=== PATIENT | male | born 1985 | race Caucasian/White ===

== ENCOUNTER 2017-08-27 21:23 | Emergency (ER) | payer OTHER ==
[~2017-08-27] VITALS: Ht 190.5 cm; Wt 99.8 kg
[2017-08-27 21:28] VITALS: Ht 190.5 cm; Wt 99.8 kg
[2017-08-27 22:30] VITALS: BP 128/88
== END 2017-08-27 22:30 | disposition home or self-care (01) ==
LOC: ED 21:23
DX: R07.9 Chest pain, unspecified (principal)
CPT/HCPCS: Q0092

== ENCOUNTER 2018-10-14 11:41 | Emergency (ER) | payer OTHER ==
[~2018-10-14] VITALS: Ht 182.9 cm; Wt 113.4 kg
[2018-10-14 11:42] VITALS: Ht 182.9 cm; Wt 113.4 kg
[2018-10-14 12:58] LABS: AMPHETAMINE QUAL UR POSITIVE (See below)
[2018-10-14 13:02] LABS: BASOPHIL % 0.4 % (0-2); PLATELET COUNT 244 x10^3mcL (130-400)
[2018-10-14 13:03] LABS: RED CELL DISTRIBUTION WIDTH 14.8 % (11.5-14.5)
[2018-10-14 13:13] VITALS: BP 128/71
[2018-10-14 13:16] LABS: CALCIUM 9.7 mg/dL (8.5-10.1); CARBON DIOXIDE 27.9 mmol/L (21-32); CHLORIDE SERUM 106 mmol/L (98-107); CREATININE SERUM 1.4 mg/dL (0.7-1.3); GFR1 > 60 mL/min; GLUCOSE SERUM 87 mg/dL (74-106); POTASSIUM SERUM 3.7 mmol/L (3.5-5.1); SODIUM SERUM 144 mmol/L (136-145)
[2018-10-14 13:21] LABS: ALBUMIN 3.9 g/dL (3.4-5.0); ALKALINE PHOSPHATASE 70 U/L (46-116); ALT/SGPT 58 U/L (16-63); AST/SGOT 39 U/L (15-37); BILIRUBIN TOTAL 0.9 mg/dL (0.20-1.00); TOTAL PROTEIN, SERUM 7.8 g/dL (6.4-8.2)
== END 2018-10-14 13:13 | disposition home or self-care (01) ==
LOC: ED 11:41
PROVIDERS: Emergency Medicine
DX: R53.1 Weakness (principal); T67.5XXA Heat exhaustion, unspecified, initial encounter; Z59.0 Homelessness; X58.XXXA Exposure to other specified factors, initial encounter; Y93.89 Activity, other specified; Y92.89 Other specified places as the place of occurrence of the external cause; Y99.8 Other external cause status
CPT/HCPCS: 36415; G0480

== ENCOUNTER 2018-11-29 11:22 | Emergency (ER) | payer OTHER | END 2018-11-29 15:21 | disposition other institution (70) | LOC: ED 11:22 | DX: Z02.89 Encounter for other administrative examinations (principal) ==

== ENCOUNTER 2018-11-29 11:22 | Emergency (ER) | payer OTHER ==
[~2018-11-29] VITALS: Ht 167.6 cm; Wt 90.7 kg
[2018-11-29 11:26] VITALS: Ht 167.6 cm; Wt 90.7 kg
[2018-11-29 12:21] LABS: BASOPHIL % 0.3 % (0-2); PLATELET COUNT 214 x10^3mcL (130-400)
[2018-11-29 12:25] LABS: CALCIUM 8.8 mg/dL (8.5-10.1); CARBON DIOXIDE 23.1 mmol/L (21-32); CHLORIDE SERUM 106 mmol/L (98-107); GFR1 > 60 mL/min; GLUCOSE SERUM 105 mg/dL (74-106); POTASSIUM SERUM 3.6 mmol/L (3.5-5.1); SODIUM SERUM 142 mmol/L (136-145)
[2018-11-29 12:26] LABS: RED CELL DISTRIBUTION WIDTH 15.1 % (11.5-14.5)
[2018-11-29 12:30] LABS: ALBUMIN 3.8 g/dL (3.4-5.0); ALKALINE PHOSPHATASE 59 U/L (46-116); ALT/SGPT 39 U/L (16-63); AST/SGOT 25 U/L (15-37); BILIRUBIN TOTAL 0.6 mg/dL (0.20-1.00); TOTAL PROTEIN, SERUM 7.6 g/dL (6.4-8.2)
[2018-11-29 15:21] VITALS: BP 116/69
== END 2018-11-29 15:21 | disposition other institution (70) ==
LOC: ED 11:22
PROVIDERS: Emergency Medicine
DX: F15.10 Other stimulant abuse, uncomplicated (principal)
CPT/HCPCS: 36415; Q0092